=== PATIENT | male | born 1985 | race Two or more races ===

== ENCOUNTER 2018-10-18 11:26 | Emergency (ER) | payer MEDICAID, OTHER ==
[~2018-10-18] VITALS: Ht 195.6 cm; Wt 90.7 kg
--- NOTE | 2018-10-18 11:35 | NUR ---
ED Nurse Note: PT BROUGHT IN TO ER TODAY BY FRIENDS FROM HOME. AOX4. PT C/O GENERALIZED WEAKNESS X 2 DAYS AGO. PT STATES HE FEELS TOO WEAK TO WALK AND HAD TO HAVE HIS FRIENDS CARRY HIM TO ER TODAY. PT STATES HE HAS HX OF POTASSIUM DEFICIENCY AND PERIODICALLY GETS SIMILAR SYMPTOMS. HR: 75, BP: 142/58.
[2018-10-18 12:10] LABS: BASOPHILS % (AUTO) 1.5 % (0.0-2.0); EOSINOPHILS % (AUTO) 8.8 % (0.0-3.0); HEMATOCRIT 48.9 % (42.0-52.0); HEMOGLOBIN 16.2 G/DL (14.2-18.0); LYMPHOCYTES % (AUTO) 35.5 % (20.0-45.0); MEAN CORPUSCULAR VOLUME 95 FL (80-99); MONOCYTES % (AUTO) 5.4 % (1.0-10.0); NEUTROPHILS % (AUTO) 48.8 % (45.0-75.0); PLATELET COUNT 151 K/UL (150-450); RED BLOOD COUNT 5.16 M/UL (4.70-6.10); RED CELL DISTRIBUTION WIDTH 11.2 % (11.6-14.8); WHITE BLOOD COUNT 6.6 K/UL (4.8-10.8)
[2018-10-18 12:23] VITALS: BP 131/85
[2018-10-18 12:24] LABS: ANION GAP 9 mmol/L (5-15); BLOOD UREA NITROGEN 18 mg/dL (7-18); CALCIUM 8.7 MG/DL (8.5-10.1); CARBON DIOXIDE 25 MMOL/L (21-32); CHLORIDE 109 MMOL/L (98-107); CREATININE 1.1 MG/DL (0.55-1.30); POTASSIUM 3.1 MMOL/L (3.5-5.1); SODIUM 143 MMOL/L (136-145)
[2018-10-18 12:28] LABS: ALANINE AMINOTRANSFERASE 24 U/L (12-78); ALBUMIN 3.8 G/DL (3.4-5.0); ALBUMIN/GLOBULIN RATIO 1.3 (1.0-2.7); ALKALINE PHOSPHATASE 60 U/L (46-116); ASPARTATE AMINO TRANSFERASE 9 U/L (15-37); BILIRUBIN,TOTAL 0.4 MG/DL (0.2-1.0); PHOSPHORUS 2.2 MG/DL (2.5-4.9)
[2018-10-18] MEDS ORDERED: Phospha 250 Neutral tab ORAL ONE (13:15)
--- NOTE | 2018-10-18 13:16 | NUR ---
ED Nurse Note: PHARMACY CALLED FOR PHOSPHA 250 NEUTRAL. PER PHARMACY, WILL BE READY IN 5 MINS.
--- NOTE | 2018-10-18 13:30 | NUR ---
ED Nurse Note: MUSCLE STRENGTH REASSESSED: 5/5 UPPER EXTREMITIES, 5/5 LOWER EXTREMITIES 5/5 FEET.
[2018-10-18 14:30] VITALS: BP 126/80
--- NOTE | 2018-10-18 14:41 | NUR ---
ED Nurse Note: SPOKE WITH CELENA FROM [facility].
--- NOTE | 2018-10-18 14:52 | Emergency Room Report ---
History of Present Illness General Chief Complaint: Generalized Weakness Source: Patient Present Illness HPI This patient has a history of hypokalemia periodic paralysis. The patient states he has not had about episode for 15 years. He states he does has oral potassium that he takes. He states that he did do about 100 pushups 5 days ago. He states that he noted some tension and tightness in his muscles at that time. He states that since Wednesday, 5 days ago, he has developed weakness in his legs and arms. He did take 7 tablets of his potassium in the last 24 hours. He denies difficulty breathing. He denies cough or congestion. He denies recent illness. He denies fever or chills. He has no other complaints. Allergies: Coded Allergies: No Known Allergies (Unverified , 10/18/18) Patient History Past Medical History: see triage record, DM, HTN, CAD, CHF, GERD, renal disease , dialysis Social History: Denies: smoking, alcohol use, drug use Reviewed Nursing Documentation: PMH: Agreed; PSxH: Agreed Nursing Documentation-PMH Past Medical History: No History, Except For Hx Asthma: Yes Review of Systems All Other Systems: negative except mentioned in HPI Physical Exam Vital Signs Date Time Temp Pulse Resp B/P (MAP) Pulse Ox O2 Delivery O2 Flow Rate FiO2 10/18/18 11:29 98.2 51 20 116/62 99 10/18/18 12:23 Room Air Sp02 EP Interpretation: reviewed, normal General Appearance: no apparent distress, alert, GCS 15, non-toxic Head: normocephalic, atraumatic Eyes: bilateral eye normal inspection, bilateral eye PERRL ENT: hearing grossly normal, normal pharynx, no angioedema, normal voice Neck: full range of motion, supple/symm/no masses Respiratory: chest non-tender, lungs clear, normal breath sounds, no respiratory distress, no retraction, no accessory muscle use, speaking full sentences Cardiovascular #1: regular rate, rhythm, no edema Gastrointestinal: normal bowel sounds, non tender, soft, non-distended, no guarding, no rebound Rectal: deferred Musculoskeletal: back normal, normal range of motion, non-tender Neurologic: alert, oriented x3, responsive, speech normal, other - 3/5 weakness proximal muscles. 4/5 MS distal muscles. Psychiatric: judgement/insight normal, memory normal, mood/affect normal, no suicidal/homicidal ideation Skin: normal color, no rash, warm/dry, well hydrated Medical Decision Making Diagnostic Impression: Primary Impression: Hypokalemic periodic paralysis ER Course This patient has a known history of hypokalemic periodic paralysis. The patient 's potassium is 3.1. I feel that the patient has been replenishing his potassium on his own. Patient EKG does have multiple PVCs but otherwise does not have any concerning characteristics such as QT prolongation. The patient was given gentle potassium replacement with 20 mEq of oral potassium chloride. It is very easy for this patient to have rebound hyperkalemia and given that the potassium was only 3.1, I did not feel that aggressive potassium replacement was indicated at this time. He also had a low phosphorus and magnesium but not dangerously so. This was repleted. The patient will be admitted for further monitoring of his potassium levels and for resolution of his weakness. He is admitted to telemetry. Laboratory Tests Test 10/18/18 11:58 10/18/18 13:45 White Blood Count 6.6 K/UL (4.8-10.8) Red Blood Count 5.16 M/UL (4.70-6.10) Hemoglobin 16.2 G/DL (14.2-18.0) Hematocrit 48.9 % (42.0-52.0) Mean Corpuscular Volume 95 FL (80-99) Mean Corpuscular Hemoglobin 31.3 PG (27.0-31.0) H Mean Corpuscular Hemoglobin Concent 33.1 G/DL (32.0-36.0) Red Cell Distribution Width 11.2 % (11.6-14.8) L Platelet Count 151 K/UL (150-450) Mean Platelet Volume 9.4 FL (6.5-10.1) Neutrophils (%) (Auto) 48.8 % (45.0-75.0) Lymphocytes (%) (Auto) 35.5 % (20.0-45.0) Monocytes (%) (Auto) 5.4 % (1.0-10.0) Eosinophils (%) (Auto) 8.8 % (0.0-3.0) H Basophils (%) (Auto) 1.5 % (0.0-2.0) Sodium Level 143 MMOL/L (136-145) Potassium Level 3.1 MMOL/L (3.5-5.1) L Chloride Level 109 MMOL/L (98-107) H Carbon Dioxide Level 25 MMOL/L (21-32) Anion Gap 9 mmol/L (5-15) Blood Urea Nitrogen 18 mg/dL (7-18) Creatinine 1.1 MG/DL (0.55-1.30) Estimate Glomerular Filtration Rate > 60 mL/min (>60) Glucose Level 88 MG/DL (74-106) Calcium Level 8.7 MG/DL (8.5-10.1) Phosphorus Level 2.2 MG/DL (2.5-4.9) L Magnesium Level 1.5 MG/DL (1.8-2.4) L Total Bilirubin 0.4 MG/DL (0.2-1.0) Aspartate Amino Transferase (AST) 9 U/L (15-37) L Alanine Aminotransferase (ALT) 24 U/L (12-78) Alkaline Phosphatase 60 U/L (46-116) Total Protein 6.8 G/DL (6.4-8.2) Albumin 3.8 G/DL (3.4-5.0) Globulin 3.0 g/dL Albumin/Globulin Ratio 1.3 (1.0-2.7) Urine Opiates Screen Negative (NEGATIVE) Urine Barbiturates Screen Negative (NEGATIVE) Phencyclidine (PCP) Screen Negative (NEGATIVE) Urine Amphetamines Screen Negative (NEGATIVE) Urine Benzodiazepines Screen Negative (NEGATIVE) Urine Cocaine Screen Negative (NEGATIVE) Urine Marijuana (THC) Screen Positive (NEGATIVE) H Ionized Calcium (Measured) 1.18 mmol/L (1.10-1.35) EKG Diagnostic Results Rate: normal Rhythm: NSR ST Segments: no acute changes Other Impression Frequent PVCs Rhythm Strip Diag. Results EP Interpretation: yes Rate: 60's Rhythm: no PVC's, no ectopy, other - S.bradycardia Last Vital Signs Date Time Temp Pulse Resp B/P (MAP) Pulse Ox O2 Delivery O2 Flow Rate FiO2 10/18/18 12:23 74 18 Room Air 10/18/18 12:23 98.4 131/85 100 Status: improved Disposition: ADMITTED INPATIENT Condition: Serious Referrals: [facility],REFERRING (PCP) Yolanda Waters DO Oct 18, 2018 14:52
[2018-10-18 16:07] LABS: POTASSIUM 3.5 MMOL/L (3.5-5.1)
[2018-10-18 16:30] VITALS: BP 124/76
--- NOTE | 2018-10-18 17:35 | NUR ---
ED Nurse Note: DYANA MENDOZA CALLED FOR PT REPORT. RN NOT ASSIGNED FOR PT. CALL BACK NUMBER GIVEN TO [employer]ATIONS MANAGER, JAIRO WHO STATES RN WILL CALL BACK FOR REPORT ZORAIDA.
--- NOTE | 2018-10-18 18:22 | NUR ---
ED Nurse Note: DYANA MENDOZA CALLED FOR PT REPORT. REPORT GIVEN TO ELVIA MOCTEZUMA. RN INFORMED AMBULANCE ETA TO [facility] [place] ER IS 1900. DYANA READY TO ACCEPT PT. PT'S VSS AND AWAITING TRANSPORT.
[2018-10-18 18:24] VITALS: BP 124/74
--- NOTE | 2018-10-18 18:50 | NUR ---
ED Nurse Note: [facility] HERE FOR PT TRANSPORT. REPORT GIVEN TO EMS. PT TRANSFERRED TO [facility] VIA AMBULANCE WITH ALL BELONGINGS ACCOMPANIED BY EMS.
[2018-10-18 18:52] VITALS: BP 128/70
--- NOTE | 2018-10-19 18:05 | Cardiology Report ---
APPROVED REPORT EKG Measurement Heart [id number] IL 122P46 [id number] Sinus rhythm with blocked premature atrial complexes with frequent premature ventricular complexes Nonspecific T wave abnormality Abnormal ECG
== END 2018-10-18 18:59 | disposition other institution (70) ==
LOC: EMR 12:04
DX: E87.6 Hypokalemia (principal); J45.909 Unspecified asthma, uncomplicated; I49.3 Ventricular premature depolarization
CPT/HCPCS: 36415; 80053; 80307; 82330; 83735; 84100; 84132; 85025; 93005; 96365; 99284; C9399; J8499